=== PATIENT | female | born 1985 | race Caucasian/White ===

== ENCOUNTER 2021-09-22 09:37 | Outpatient (REF) | payer OTHER, SELFPAY ==
--- NOTE | 2021-09-22 16:34 | MHC.AU.ANH ---
Adult Audiological Evaluation Date of Visit: 09/22/21 Reason for Appointment: Audiological evaluation to determine if there has been a change in hearing sensitivity. Ms. Garay states that she was previously diagnosed with a hearing loss in the left ear. She was previously followed at [facility] where she obtained a hearing aid for the left ear. She notes that she is in college at [employer] and struggles to follow along in class, especially in large lecture halls. Ms. Garay feels she doesn't hear well from her right ear either. She notes that she had many ear infections as a child, had PE tubes, and was told that it likely contributed to her hearing loss. She has previously been seen at [facility], and they offered to do surgery on her left ear but she deferred. She notes a recent ear infection in June 2021. Previous Hearing Test Results: Previously followed by [facility] and [facility]. Records not available for review today. Ear History: Recent Ear Drainage: Both Ears Recent Ear Pain: Both Ears Recent Ear Infections: Both Ears Ear Infections in Childhood: Both Ears Previous Ear Surgery: Both ears, PE tubes Blocked/Full Sensation in Ear(s): Both Ears Medical History: Medical History: Headache, High Blood Pressure, Migraines, Tobacco Use Medical History: Tonsillectomy, three emergency surgeries for Flako's angina Allergies: penicillin, Ceclor, sulfa, clindamycin, adhesives Medication List: Methadone, omeprazole, amlodipine benazepril, albuterol inhaler Hearing Instrument History- Left Ear: Sports Manager: [employer] Model: Shiloh 2 BTE Serial Number: [id number] Battery Size: 13 Warranty: Loss and Damage Warranty: Dispensed By: [facility] Date of Fitting: Per [employer], purchased in March 2018. Otoscopy: Right Ear: Unremarkable Left Ear: Unremarkable Tympanometry: Tympanometry performed due to: Conductive component found in audiometric results Right Ear: Normal Middle Ear System (Type A) Left Ear: Normal Middle Ear System (Type A) Hearing Evaluation: Transducer(s) Used: Insert Earphones, Bone Conduction Method: Conventional Audiometry Stimuli Used: Pure Tones Right Ear: Description of Hearing: Normal hearing from 250-8000 Hz. Left Ear: Description of Hearing: Moderately-severe mixed hearing loss from 250-1000 Hz, rising to mild sensorineural hearing loss at 2000 Hz, and normal hearing from 4207-1909 Hz. Reverse-slope hearing loss. Speech Recognition Threshold (SRT): Method Used: Monitored Live Voice Stimuli Used: Spondee Words Right Ear: 15 dBHL Left Ear: 30 dBHL Word Discrimination: Method: Recorded Lists Word Lists Used: NU-6 Right Ear: 100% at 55 dBHL Left Ear: 76% at 70 dBHL Recommendations: Audiological re-evaluation in one year. Hearing aid maintenance performed today. Hearing aid(s) reprogrammed with updated test results. Recommend consistent hearing aid use in the left ear. Ms. Garay's current hearing aid is working well. Additionally, Ms. Garay would benefit from some accommodations in her classes at [employer]: -Preferential seating at the front of the class or lecture gonsalez, within clear view of the speaker. -Access to class notes and slideshows prior to the class session so that can be reviewed ahead of time and allow the student to follow along in class more easily. -A notetaker, either volunteer or paid, to take detailed notes of class lectures and discussions, which are then given to hearing impaired students. -Tape recorded classes and lectures, so the student can review what was said in class if something was missed. -If needed, an FM system or a remote microphone system to provide the student with direct access to the speakers voice without amplifying background noises. Diagnosis: Primary Diagnosis: H90.72 Mixed HL, Unilateral, Left Ear, W/Unrestricted Contralateral Secondary Diagnosis: Services Performed: Comprehensive Audiological Evaluation (CPT 46715) Tympanometry (CPT 09398) Signature: Student/Clinical Fellow: No I have reviewed/agreed with student/fellow documentation: N/A Provider: Andrei Diamond, CCC-A
== END 2021-09-22 09:38 | disposition home or self-care (01) ==
LOC: HO.SH 09:37
PROVIDERS: Visit Provider Nurse Practitioner Family
DX: Z01.118 Encounter for examination of ears and hearing with other abnormal findings (principal); H90.72 Mixed conductive and sensorineural hearing loss, unilateral, left ear, with unrestricted hearing on the contralateral side
CPT/HCPCS: 92557; 92567; V5011

== ENCOUNTER 2025-03-23 12:27 | Outpatient (REF) | payer OTHER, SELFPAY ==
--- OUTSIDE RECORDS SUMMARY | 2025-03-23 12:30 | XMS_ITS | Clinical Summary ---
Author Organization [facility] [place] Address [address] [place] [address] Care Team Providers Care Anthropology Lecturer Name Role Phone Unavailable Primary Care Provider Unavailabl e Social History Tobacco Use Types Packs/Day Years Used Date Smoking Tobacco: Never Assessed Comments Unknown Sex and Gender Information Value Date Recorded Sex Assigned at Not on file Legal Sex Female 1:48 PM EST Gender Identity Not on file Sexual Orientation Not on file Plan of Treatment Health Maintenance Due Date Last Done Comments DTaP,Tdap,and Td Vaccines (1 - Tdap) 2006 Hepatitis B Vaccines (1 of 3 - 19+ 3-dose series) 2006 Cervical Cancer Screening: P ap Smear 2008 COVID-19 Vaccine (2023-2 5 season) 2024 HIV Screening 06/16/2024 Hepatitis C Screening 06/16/2024 Social Influencers of Health Screening 06/16/2024 Depression Screening 08/23/2024 Influenza Vaccine (#1) 2025 HIB Vaccines Aged Out No longer eligi ble based on patient's age to complete this topic HPV Vaccines Aged Out No longer eligi ble based on patient's age to complete this topic Hepatitis A Vaccines Aged Out No long er eligible based on patient's age to complete this topic IPV Vaccines Aged Out No longer eligi ble based on patient's age to complete this topic MMR Vaccines Aged Out No longer eligi ble based on patient's age to complete this topic Meningococcal ACWY Vaccine Aged Out N o longer eligible based on patient's age to complete this topic Meningococcal B Vaccine Aged Out No l onger eligible based on patient's age to complete this topic Pneumococcal Vaccine: Pediat rics (0 to 5 Years) and At-Risk Patients (6 to 49 Years) Aged Out No longer eligible b ased on patient's age to complete this topic RSV Immunization Patients Un terrance 20 months Aged Out No longer eligible b ased on patient's age to complete this topic Varicella Vaccines Aged Out No longer eligible based on patient's age to complete this topic
--- OUTSIDE RECORDS SUMMARY | 2025-03-23 12:30 | XMS_ITS | Encounter Summary ---
Author Organization [employer] Address [address] [place] [address] [address] [place] [address] Care Team Providers Care Display Screen Fabricator Name Role Phone Provider, Not In System Primary Care Provider Un available Reason for Visit * Reason Comments Med Refill Encounter Details Date Type Department Care Team ([facility] st Contact Info) Description 09/06/2023 Refill [facility] [address] [place] [address] [phone] Urbano Metzger PA [address] [place] [address] Hyperhidrosis Social History Tobacco Use Types Packs/Day Years Used Date Smoking Tobacco: Every Day Cigarettes 0.8 20 Smokeless Tobacco: Never Alcohol Use Standard Drinks/Week Comments Not Currently 0 (1 standard drink = 0.6 oz pur e alcohol) PHQ-2 Answer Date Recorded Patient Health Questionnaire-2 Score 2 10/26/2022 Housing Stability Answer Date Recorded What is your housing situation today? I have elisha russell [address] you li ve. Do you have problems with any of the following? None of the above 2023 Food Insecurity Answer Date Recorded Within the past 12 months, y ou worried that your food would run out before you got money to buy more: Never True 2023 Within the past 12 months,th e food you bought just didn't last and you didn't have enough money to get more: Never True Transportation Answer Date Recorded In the past 12 months, has l ack of transportation kept you from medical appts, meetings, work or from getting things needed for daily living? No 2023 Utilities Answer Date Recorded In the past 12 months, has t he electric, gas, oil or water company threatened to shut off services in your home? No 2023 Depression Answer Date Recorded Patient Health Questionnaire-2 Score 2 10/26/2022 Comments No Sex and Gender Information Value Date Recorded Sex Assigned at Female 10/22/2022 9:58 AM EST Legal Sex Female 9:55 AM EST Gender Identity Female 10/22/2022 9:58 AM EST Sexual Orientation Bisexual 10/22/2022 9: 58 AM EST documented as of this encounter Miscellaneous Notes * Telephone Encounter - DONNA Santizo - 09/07/2023 9:53 AM EST Thanks. In that case I am refusing request. Please make sure patient chart is appropriately labeled, etc to reflect she is now a patient elsewhere. * Telephone Encounter - Alley Walton - 09/07/2023 9:39 AM EST Called and talked to the pt about the refill request, they are seeing Dr. Mathew and his office is taking care of the refill. * Telephone Encounter - Ramona Garcia - 09/07/2023 8:14 AM EST PCP: No primary care provider on file. Last in-person office visit: 05/28/2023 DONNA Santizo Lab Results Component Value Date ALBUMIN 4.4 10/26/2022 ALT 28 10/26/2022 AST 24 10/26/2022 BUN 9 10/26/2022 CL 99 10/26/2022 CREATININE 0.8 10/26/2022 EGFRCREATINI 99 10/26/2022 HDL 37 (L) 10/26/2022 HCT 42.1 10/26/2022 HGB 14.0 10/26/2022 HGBA1C 5.0 10/26/2022 LDL 136 10/26/2022 PLT 365 10/26/2022 K 3.8 10/26/2022 NA 136 10/26/2022 TSH 3.80 10/26/2022 WBC 8.6 10/26/2022 No future appointments. Comments: documented in this encounter Plan of Treatment Not on file documented as of this encounter Visit Diagnoses Diagnosis Hyperhidrosis Generalized hyperhidrosis documented in this encounter Care Teams Display Screen Fabricator Relationship Specialty Start Date End Date Provider, Not In System PCP - General Family Medicine 06/19/24 documented as of this encounter
--- OUTSIDE RECORDS SUMMARY | 2025-03-23 12:30 | XMS_ITS | Clinical Summary ---
Author Organization [facility] [employer] [facility] lin Address [address] [place] [address] Care Team Providers Care Circular Knitter Name Role Phone Unavailable Primary Care Provider Unavailabl e Social History Tobacco Use Types Packs/Day Years Used Date Smoking Tobacco: Never Assessed Comments Unknown Sex and Gender Information Value Date Recorded Sex Assigned at Not on file Legal Sex Female 7:09 PM EST Gender Identity Not on file Sexual Orientation Not on file Plan of Treatment Health Maintenance Due Date Last Done Comments Depression: Screening Annual ly using PHQ-2/9 in Adults 18 yrs or above (or HM Modifier)([facility]) 2005 Hepatitis C Virus Infection in Adolescents and Adults: Screening (or Modifier) ([facility]) 2005 SDGA Screening Reminder: Catia alberta for all adults ([facility]) 2005 Tobacco Smoking Cessation: i n Adults excluding Women: Behavioral and Pharmacotherapy Interventions ([facility]) 2005 DTaP/Tdap/Td Vaccines ([facility]) (1 - Tdap) 2006 Cervical Cancer Screenin 1-65 yrs of age (or Modifier) 2008 Cervical Cancer Screening: P ap every 3 yrs pts age 21-65 2008 Cervical Cancer: Pap Screeni ng with Modifier timing ([facility]) 2008 Cervical Cancer: hrHPV alone or with cotesting Pap for Pts 30-65yrs screening every 5yrs ([facility]) 2008 COVID-19 Vaccine Screening: Initial Series and Booster Status ([facility]) ( - 2023- season) 2024 Flu Vaccination: Yearly for ages 18mos through 64 years (or Modifier)([facility]) 03/23/2025 Zoster/Shingles Vaccine Seri es Screening: Adults aged 18+ yrs (or HM Modifiers)([facility]) (1 of 2) 2037 Pneumococcal Vaccination Scr eening: Pts 0-19 & 19-49 yrs of age ([facility]) Aged Out No longer eligible based on patient's age to complete this topic Medical Devices Not on file Insurance [place] [employer]
--- NOTE | 2025-03-23 14:32 | MHC.AU.HA1 ---
Hearing Aid Evaluation Date of Visit: 03/23/25 Historical Information: Description of Hearing: Moderately severe mixed hearing loss rising to within normal limits As. Within normal Ad. Current personal amplification information, if applicable: Oticon Shiloh 2 BTE, lost about 1 year ago. Summary: Reports interest in trying a hearing aid again on the left ear. Lost her BTE about a year ago. Reports she had struggled with the hearing aid previously due to overwhelming background noise. Discussed benefits and limitations of amplification, particularly in the case of a reverse slope hearing loss. Recommend trial with updated technology to facilitate improved communication. Gemini selected rechargeable. Will start with a dome fitting, discussed possible need for an earmold. Hearing Aid Prescription: Based on the individual?s shared listening needs, communication environments, dexterity, desire for connectivity, and personal preferences, the following prescription for amplification has been made: Right ear: Make, Model, Color: NONE Left ear: Make, Model, Color: Oticon Intent 2 R blue Battery Size: Rechargeable Educational Programming Director/Slim Tube: 2 85 Type of Earmold/Dome/CShell/SlimTip: 8mm power Plan of Care: Patient wishes to purchase hearing aids as prescribed Action Taken/Action Needed: Medical Clearance to be requested from PCP/ENT Hearing Instrument Fitting to be scheduled when materials arrive Primary Diagnosis: H90.72 Mixed HL, Unilateral, Left Ear, W/Unrestricted Contralateral Signature: Provider: Josue Ferreira, [facility]
== END 2025-03-23 12:28 | disposition home or self-care (01) ==
LOC: HO.SH 12:27
PROVIDERS: Visit Provider Family Medicine
DX: Z01.118 Encounter for examination of ears and hearing with other abnormal findings (principal); Z46.1 Encounter for fitting and adjustment of hearing aid; H90.72 Mixed conductive and sensorineural hearing loss, unilateral, left ear, with unrestricted hearing on the contralateral side
CPT/HCPCS: 92557; 92567; 92590

== ENCOUNTER 2025-06-20 10:17 | Outpatient (REF) | payer OTHER, SELFPAY ==
--- OUTSIDE RECORDS SUMMARY | 2025-06-20 12:43 | XMS_ITS | Encounter Summary ---
Author Organization [employer] Address [address] [place] [address] [address] [place] [address] Care Team Providers Care Diamond Picker Name Role Phone Provider, Not In System Primary Care Provider Un available Reason for Visit * Reason Comments Med Refill Encounter Details Date Type Department Care Team ([facility] st Contact Info) Description 09/06/2023 Refill [facility] [address] [place] [address] [phone] Urbano Metzger PA [address] [place] [address] Hyperhidrosis Social History Tobacco Use Types Packs/Day [...] hyperhidrosis documented in this encounter Care Teams Diamond Picker Relationship Specialty Start Date End Date Provider, Not In System PCP - General Family Medicine 06/19/24 documented as of this encounter
--- OUTSIDE RECORDS SUMMARY | 2025-06-20 12:43 | XMS_ITS | Clinical Summary ---
Author Organization [employer] Address [address] [place] [address] [address] [place] [address] Care Team Providers Care On Air Talent Name Role Phone Provider, Not In System Primary Care Provider Un available Allergies Active Allergy Reactions Criticality Noted Date Comments Cefaclor 10/26/2022 Clindamycin 10/26/2022 Morphine 10/26/2022 Nsaids 10/26/2022 Penicillins 10/26/2022 Sulfa Antibiotics 10/26/2022 Wound Dressing Adhesive 10/26/2022 Medications omeprazole (PriLOSEC) [address] capsule Take 20 mg by mouth in the morning. 3 Active valACYclovir (Valtrex) 500 MG tablet Take 500 mg by mouth in the morning. 3 Active methadone (Dolophine) 10 MG/5ML solution Take 90 mg by mouth in the morning. 90 mg day at [facility] Active Ergocalciferol (VITAMIN D2 PO) Take by mouth. Active hydrOXYzine HCl (Atarax) 25 MG tablet Take 1 tablet (25 mg) by mouth if needed in the morning, at noon, and at bedtime for itching for up to 10 days. 30 tablet 3 Active amphetamine-dextro amphetamine (Adderall) 5 MG tabletIndications: ADHD (attention deficit hyperactivity disorder), combined type Take 1 tablet (5 mg) by mouth 2 times daily for 28 days. 56 tablet 3 Active amLODIPine-benazep ril (Lotrel) 2.5-10 MG capsuleIndications :Primary hypertension Take 1 capsule by mouth in the morning. 90 capsule 3 Active terazosin (Hytrin) 1 MG capsuleIndications :Hyperhidrosis TAKE 1 CAPS BY MOUTH AT BEDTIME FOR 14 DAYS, THEN 2 CAPS AT BEDTIME. 154 capsule Active Active Problems Problem Noted Date Diagnosed Date Hypertension 05/28/2023 Assessment & Plan (05/28/2023 3:39 PM EDT): Above goal <130/80. Reassuringly asymptomatic and clinically well-appearing. Recommended increasing BP med dose but she declined today - refilled as currently prescribed. Will f/u with new PCP when establishes next month. Hyperhidrosis 12/11/2022 Opioid dependence in remission ([facility]) 023 Overview (10/29/2022): History of heavy use, IV use in the past; now on 90mg methadone daily through [facility]; most recent return to use was several months ago, hard and fast and now back into treatment; goal is abstinence from street drugs Assessment & Plan (12/11/2022 1:48 PM EDT): Tapering methadone slowly, now down to 87mg/day. Continues through [facility]. ADHD (attention deficit hype ractivity disorder), combined type 10/26/2022 Assessment & Plan (05/28/2023 3:44 PM EDT): UDS appropriate. Refills provided to bridge to new PCP at [facility] with Dr. Mathew. Deferred send-out tox screen and med contract given one time refill today. Moderate episode of recurren t major depressive disorder ([facility]) 10/26/2022 Overview (10/29/2022): Stable, sees counseling through methadone clinic, has good support system Herpes simplex 10/26/2022 Family History Medical History Relation Name Comments Diabetes type I Brother Hemochromatosis Brother ADD / ADHD Daughter Hemochromatosis Father Alcohol abuse Maternal Grandmother Breast cancer Maternal Grandmother i n her 50's Meniere's disease Mother Alcohol abuse Other Drug abuse Other Hemochromatosis Sister Relation Name Status Comments Brother Daughter Father Maternal Grandmother Mother Other Sister Social History Tobacco Use Types Packs/Day Years Used Date Smoking Tobacco: Every Day Cigarettes 0.8 20 Smokeless Tobacco: Never Tobacco Cessation:Ready to Q uit: No; Counseling Given: Yes Alcohol Use Standard Drinks/Week Comments Not Currently [...] Orientation Bisexual 10/22/2022 9: 58 AM EST Last Filed Vital Signs Vital Sign Reading Time Taken Comments Blood Pressure 151/90 05/28/2023 3:33 PM EDT Pulse 80 05/28/2023 3:33 PM EDT Temperature 36.4 C (97.5 F) 05/28/2023 3:15 PM EDT Respiratory Rate - - Oxygen Saturation 98% 05/28/2023 3:15 PM EDT Inhaled Oxygen Concentration - - Weight 82.6 kg (182 lb) 10/26/2022 10:55 AM EST Height 167.6 cm (5' 6 ) 12/11/2022 1:03 PM EDT Body Mass Index 29.38 10/26/2022 10:55 AM EST Plan of Treatment Health Maintenance Due Date Last Done Comments HIV Screening 1987 Disability Screening 1987 Alcohol/Substance Use Screening 1999 Family Planning (PISQ) 2002 HPV Vaccines (1 - 3-dose series) 2002 Hepatitis C Screening 2005 Pap Smear 2008 Pneumococcal Vaccine: Pediatrics (0 to 5 Years) and At-Risk Patients (6 to 49) Years (2 of 2 - PCV) 01/13/2016 01/12/2015 Cervical Cancer Screening 2017 HPV/Cotest 2017 Depression Screening 10/27/2023 10/26/2022, 10/26/2022 SDOH Screening 10/27/2023 10/26/2022 Tobacco Screening 05/28/2024 05/28/2023 DTaP/Tdap/Td Vaccines (4 - T d or Tdap) 09/14/2024 09/14/2014, 09/14/2014, 04/26/2009 COVID-19 Vaccine (4 - 2024-2 6 season) 2025 09/11/2021, 03/13/2021, 02/11/2021 Influenza Vaccine (#1) 2025 Lipid Panel 10/27/2027 10/26/2022 Zoster Vaccines (1 of 2) 2037 RSV Patients and Patients Aged 60 years or older (1 - 1-dose 75+ series) 2062 Hepatitis B Vaccines Completed 03/25/2018, 12/30/2017, 09/07/2017 HIB Vaccines Aged Out No longer eligi [...] patient's age to complete this topic Meningococcal Vaccine Aged Out No juan annie eligible based on patient's age to complete this topic RSV under 20 months Aged Out No longe r eligible based on patient's age to complete this topic Rotavirus Vaccines Aged Out No longer eligible based on patient's age to complete this topic Procedures Procedure Name Priority Date/Time Associated Diagnosis Comments LIPID PANEL, STANDARD Routine 10/26/2022 11:52 AM EST from Last 3 Months or Most Recently Relevant to Health Maintenance Results * (ABNORMAL) Lipid Panel, Standard (10/26/2022 11:52 AM EST) Cholesterol, Total 173 (<200) MG/DL [facility] Triglyceride (mg/dL) in Serum/Plasma 286(H) (<150) MG/DL [facility] HDL Cholesterol 37(L) (>39) MG/DL [facility] LDL Cholesterol, Calculated 79 (0-130) MG/DL [facility] Non HDL Chol. (LDL+VLDL) 136 (<160) MG/DL [facility] Comment: Testing performed or reported by [facility] [employer], a Service of [facility], [address] [place] [id number] Lionel Smith MD, Wastewater Design Engineer [facility]# [id number] 10/26/2022 11:5 2 AM EST 10/26/2022 12:03 PM EST us Mallory Zapien [facility] BLOOD ORDERABLES Final Resul t [facility] [address] [place] [phone] from Last 3 Months or Most Recently Relevant to Health Maintenance Insurance [facility] Care Teams On Air Talent Relationship Specialty Start Date End Date Provider, Not In System PCP - General Family Medicine 06/19/24
--- OUTSIDE RECORDS SUMMARY | 2025-06-20 12:43 | XMS_ITS | Clinical Summary ---
Author Organization [facility] [place] Address [address] [place] [address] Care Team Providers Care Cytogenetics Technologist Name Role Phone Unavailable Primary Care Provider [...] Cervical Cancer Screening: P ap Smear 2008 HPV Vaccines (1 - 3-dose SCD M series) 2014 HIV Screening 06/16/2024 Hepatitis C Screening 06/16/2024 Social Influencers of Health Screening 06/16/2024 Depression Screening 08/23/2024 COVID-19 Vaccine ( - 2023-2 5 season) 2025 Influenza Vaccine (#1) 2025 RSV Immunization Adult Patie nts (1 - 1-dose 75+ series) 2062 HIB Vaccines Aged Out No longer eligi [...]
--- NOTE | 2025-06-20 13:36 | MHC.AU.HA2 ---
Hearing Instrument Fitting- Adult- Binaural Date of Visit: 06/20/25 Hearing Instruments Dispensed: Left Ear: Make, Model, Color, Serial Number: Oticon Intent 2 [id number]-R SN: [id number] Color: Santiago Blue Seismograph Supervisor Repair Warranty: 06/08/2028 Seismograph Supervisor Loss and Damage Warranty: 06/08/2028 [facility] Plan: 06/20/2026 Battery Size: Rechargeable Safety Analyst/Slim Tube: 2/85 Earmold/Dome/CShell/SlimTip: 8mm power dome (no retention tail) Type of Wax Guard: miniFit Accessories/Assistive Technology: [employer]on Entertainment Agent MiniRITE SN: [id number] Summary of Fitting: Performed feedback analyzer and real ear measures. Decreased to AM1 due to reported static. Discussed realistic expectations given reverse sloping hearing loss. Reviewed care, use, and rechargeability including manually turning on/off, changing domes and wax guards, and VC use. Discussed bluetooth but did not connect to cell phone at this time. Given full schedule due to staffing shortage, follow up could not be scheduled until 07/26/2026; however, advised to call sooner if issues arise. Recommendations: A hearing instrument follow-up was scheduled. Diagnosis Code(s): Primary Diagnosis: H90.72 Mixed HL, Unilateral, Left Ear, W/Unrestricted Contralateral Signature: Provider: Josue Lee, [facility]
== END 2025-06-20 10:18 | disposition home or self-care (01) ==
LOC: HO.HAP 10:17
PROVIDERS: Visit Provider Family Medicine
DX: Z46.1 Encounter for fitting and adjustment of hearing aid (principal); H90.72 Mixed conductive and sensorineural hearing loss, unilateral, left ear, with unrestricted hearing on the contralateral side
CPT/HCPCS: V5011; V5020; V5241; V5257